=== PATIENT | male | born 1990 | race Caucasian/White ===

== ENCOUNTER 2020-07-26 17:26 | Inpatient (IN) | payer OTHER ==
[2020-07-26] MEDS ORDERED: MAGNESIUM HYDROX 2400MG/30ML ORAL SUSPENSION 30 ML CUP PO PRN (18:57)
[2020-07-26] MEDS ORDERED: IBUPROFEN 400 MG TABLET (FP) PO PRN (18:57)
[2020-07-26] MEDS ORDERED: ACETAMINOPHEN 325 MG TABLET (FP) PO PRN (18:57)
[2020-07-26] MEDS ORDERED: MAG HYDROX/AL HYDROX/SIMETH 30 ML UNIT-DOSE CUP PO PRN (18:57)
[2020-07-26] MEDS ORDERED: LOPERAMIDE HCL 2 MG CAPSULE PO PRN (18:57)
[2020-07-26] MEDS ORDERED: P-EPHED 60MG/TRIPROLIDI 2.5MG TABLET PO PRN (18:57)
[2020-07-26] MEDS ORDERED: guaiFENesin 200 MG/10 ML 10 ML UNIT-DOSE CUPS PO PRN (18:57)
[2020-07-26] MEDS ORDERED: MAGNESIUM CITRATE 300 ML BOTTLE PO PRN (18:57)
[2020-07-26 19:35] VITALS: BMI 19.0
[2020-07-26] MEDS: levETIRAcetam 500 MG TABLET (FP) PO SCH (21:45)
[2020-07-26] MEDS: MELATONIN 5 MG TABLETS PO SCH (21:45)
[2020-07-26] MEDS: THIAMINE HCL 100 MG TABLET (FP) PO SCH (21:45)
[2020-07-26] MEDS: LACOSAMIDE 50 MG TABLET PO SCH (23:39)
[2020-07-27] MEDS: levETIRAcetam 500 MG TABLET (FP) PO SCH ×2 (06:42→18:57)
[2020-07-27] MEDS: PRENATAL VITAMINS W/ FOLIC ACID TABLET (FP) PO SCH (09:57)
[2020-07-27] MEDS: LACOSAMIDE 50 MG TABLET PO SCH ×2 (09:57→21:17)
[2020-07-27 12:42] LABS: HEMATOCRIT 37.1 % (35.4-49); HEMOGLOBIN 12.7 GM/dL (11.7-16.9); MCH 32.6 pg (25.7-33.7); MCHC 34.1 g/dl (32.0-35.9); MEAN CELL VOLUME 95.6 fl (80-96); PLATELET COUNT 276 K/MM3 (134-434); RBC 3.88 M/mm3 (4.00-5.60); RDW 12.9 % (11.9-15.9); WHITE BLOOD COUNT 7.1 K/mm3 (4.0-10.0)
[2020-07-27 12:47] LABS: POTASSIUM 4.1 mmol/L (3.5-5.1)
[2020-07-27 13:03] LABS: ALBUMIN 3.6 g/dl (3.4-5.0); BLOOD UREA NITROGEN 13.1 mg/dL (7-18); CALCIUM 9.4 mg/dL (8.5-10.1)
[2020-07-27 13:07] LABS: CREATININE 0.6 mg/dL (0.55-1.3)
[2020-07-27 13:09] LABS: TOT PROT 6.6 g/dl (6.4-8.2)
[2020-07-27 13:11] LABS: BILIRUBIN,TOTAL 0.6 mg/dL (0.2-1)
[2020-07-27] MEDS: THIAMINE HCL 100 MG TABLET (FP) PO SCH (21:17)
[2020-07-27] MEDS: MELATONIN 5 MG TABLETS PO SCH (21:18)
[2020-07-28] MEDS: levETIRAcetam 500 MG TABLET (FP) PO SCH ×2 (07:28→19:46)
[2020-07-28] MEDS: LACOSAMIDE 50 MG TABLET PO SCH ×2 (09:31→21:11)
[2020-07-28] MEDS: PRENATAL VITAMINS W/ FOLIC ACID TABLET (FP) PO SCH (09:31)
[2020-07-28] MEDS: THIAMINE HCL 100 MG TABLET (FP) PO SCH (21:11)
[2020-07-28] MEDS: MELATONIN 5 MG TABLETS PO SCH (21:11)
[2020-07-29] MEDS: levETIRAcetam 500 MG TABLET (FP) PO SCH ×2 (07:18→19:46)
[2020-07-29] MEDS: LACOSAMIDE 50 MG TABLET PO SCH ×2 (09:56→21:17)
[2020-07-29] MEDS: PRENATAL VITAMINS W/ FOLIC ACID TABLET (FP) PO SCH (09:56)
[2020-07-29] MEDS: THIAMINE HCL 100 MG TABLET (FP) PO SCH (21:17)
[2020-07-29] MEDS: MELATONIN 5 MG TABLETS PO SCH (21:17)
[2020-07-30] MEDS: levETIRAcetam 500 MG TABLET (FP) PO SCH ×2 (06:19→18:24)
[2020-07-30] MEDS: PRENATAL VITAMINS W/ FOLIC ACID TABLET (FP) PO SCH (10:05)
[2020-07-30] MEDS: LACOSAMIDE 50 MG TABLET PO SCH ×2 (10:06→21:09)
[2020-07-30 15:54] LABS: URINE APPEARANCE Clear; URINE BILIRUBIN Negative (NEGATIVE); URINE COLOR Yellow; URINE GLUCOSE (UA) Negative (NEGATIVE); URINE KETONE Negative (NEGATIVE); URINE LEUK ESTERASE Negative (NEGATIVE); URINE NITRITE Negative (NEGATIVE); URINE PROTEIN Negative (NEGATIVE); URINE UROBILINOGEN 0.2 mg/dL (0.2-1.0)
[2020-07-30] MEDS: MELATONIN 5 MG TABLETS PO SCH (21:09)
[2020-07-30] MEDS: THIAMINE HCL 100 MG TABLET (FP) PO SCH (21:09)
[2020-07-31] MEDS: levETIRAcetam 500 MG TABLET (FP) PO SCH ×2 (06:28→18:28)
[2020-07-31] MEDS: PRENATAL VITAMINS W/ FOLIC ACID TABLET (FP) PO SCH (09:40)
[2020-07-31] MEDS: LACOSAMIDE 50 MG TABLET PO SCH ×2 (09:40→21:10)
[2020-07-31] MEDS: THIAMINE HCL 100 MG TABLET (FP) PO SCH (21:10)
[2020-07-31] MEDS: MELATONIN 5 MG TABLETS PO SCH (21:10)
[2020-08-01] MEDS: levETIRAcetam 500 MG TABLET (FP) PO SCH ×2 (06:51→19:20)
[2020-08-01] MEDS: LACOSAMIDE 50 MG TABLET PO SCH ×2 (09:37→22:00)
[2020-08-01] MEDS: PRENATAL VITAMINS W/ FOLIC ACID TABLET (FP) PO SCH (09:37)
[2020-08-01] MEDS: MELATONIN 5 MG TABLETS PO SCH (22:00)
[2020-08-01] MEDS: THIAMINE HCL 100 MG TABLET (FP) PO SCH (22:00)
[2020-08-02] MEDS: levETIRAcetam 500 MG TABLET (FP) PO SCH ×2 (06:49→18:09)
[2020-08-02] MEDS: PRENATAL VITAMINS W/ FOLIC ACID TABLET (FP) PO SCH (09:54)
[2020-08-02] MEDS: LACOSAMIDE 50 MG TABLET PO SCH ×2 (09:54→21:36)
[2020-08-02] MEDS: THIAMINE HCL 100 MG TABLET (FP) PO SCH (21:35)
[2020-08-02] MEDS: MELATONIN 5 MG TABLETS PO SCH (21:35)
[2020-08-03] MEDS: levETIRAcetam 500 MG TABLET (FP) PO SCH ×2 (06:56→19:50)
[2020-08-03] MEDS: PRENATAL VITAMINS W/ FOLIC ACID TABLET (FP) PO SCH (09:48)
[2020-08-03] MEDS: LACOSAMIDE 50 MG TABLET PO SCH ×2 (09:48→21:13)
[2020-08-03] MEDS: MELATONIN 5 MG TABLETS PO SCH (21:13)
[2020-08-03] MEDS: THIAMINE HCL 100 MG TABLET (FP) PO SCH (21:13)
[2020-08-04] MEDS: levETIRAcetam 500 MG TABLET (FP) PO SCH ×2 (06:35→18:01)
[2020-08-04] MEDS: PRENATAL VITAMINS W/ FOLIC ACID TABLET (FP) PO SCH (09:28)
[2020-08-04] MEDS: LACOSAMIDE 50 MG TABLET PO SCH ×2 (09:29→21:26)
[2020-08-04] MEDS: MELATONIN 5 MG TABLETS PO SCH (21:26)
[2020-08-04] MEDS: THIAMINE HCL 100 MG TABLET (FP) PO SCH (21:26)
[2020-08-05] MEDS: levETIRAcetam 500 MG TABLET (FP) PO SCH ×2 (06:30→20:18)
[2020-08-05] MEDS: LACOSAMIDE 50 MG TABLET PO SCH (09:45)
[2020-08-05] MEDS: PRENATAL VITAMINS W/ FOLIC ACID TABLET (FP) PO SCH (09:45)
[2020-08-05] MEDS: THIAMINE HCL 100 MG TABLET (FP) PO SCH (21:14)
[2020-08-05] MEDS: MELATONIN 5 MG TABLETS PO SCH (21:14)
[2020-08-06] MEDS: levETIRAcetam 500 MG TABLET (FP) PO SCH ×2 (06:24→19:59)
[2020-08-06] MEDS: PRENATAL VITAMINS W/ FOLIC ACID TABLET (FP) PO SCH (09:41)
[2020-08-06] MEDS ORDERED: LACOSAMIDE 50 MG TABLET PO ONE (13:44)
[2020-08-06] MEDS: THIAMINE HCL 100 MG TABLET (FP) PO SCH (21:06)
[2020-08-06] MEDS: HALOPERIDOL 2 MG TABLET PO SCH (21:06)
[2020-08-06] MEDS: LACOSAMIDE 50 MG TABLET PO SCH (21:08)
[2020-08-06] MEDS: MELATONIN 5 MG TABLETS PO SCH (21:09)
[2020-08-07] MEDS: levETIRAcetam 500 MG TABLET (FP) PO SCH ×2 (07:05→21:05)
[2020-08-07] MEDS: PRENATAL VITAMINS W/ FOLIC ACID TABLET (FP) PO SCH (10:15)
[2020-08-07] MEDS: LACOSAMIDE 50 MG TABLET PO SCH ×2 (10:16→21:06)
[2020-08-07] MEDS ORDERED: PT OWN MED DRAWER 7, Y5N ONE ×2 (19:29→21:08)
[2020-08-07] MEDS: MELATONIN 5 MG TABLETS PO SCH (21:06)
[2020-08-07] MEDS: THIAMINE HCL 100 MG TABLET (FP) PO SCH (21:06)
[2020-08-07] MEDS: HALOPERIDOL 2 MG TABLET PO SCH (23:32)
[2020-08-08] MEDS: levETIRAcetam 500 MG TABLET (FP) PO SCH ×2 (06:26→19:20)
[2020-08-08] MEDS: LACOSAMIDE 50 MG TABLET PO SCH ×2 (09:46→21:30)
[2020-08-08] MEDS: PRENATAL VITAMINS W/ FOLIC ACID TABLET (FP) PO SCH (09:46)
[2020-08-08] MEDS: HALOPERIDOL 2 MG TABLET PO SCH (21:30)
[2020-08-08] MEDS: THIAMINE HCL 100 MG TABLET (FP) PO SCH (21:30)
[2020-08-08] MEDS: MELATONIN 5 MG TABLETS PO SCH (21:30)
[2020-08-09] MEDS ORDERED: HALOPERIDOL 2 MG TABLET PO SCH
[2020-08-09] MEDS: levETIRAcetam 500 MG TABLET (FP) PO SCH ×2 (06:35→19:29)
[2020-08-09] MEDS: PRENATAL VITAMINS W/ FOLIC ACID TABLET (FP) PO SCH (09:54)
[2020-08-09] MEDS: LACOSAMIDE 50 MG TABLET PO SCH ×2 (09:55→21:27)
[2020-08-09] MEDS: MELATONIN 5 MG TABLETS PO SCH (21:27)
[2020-08-09] MEDS: THIAMINE HCL 100 MG TABLET (FP) PO SCH (21:27)
[2020-08-09] MEDS ORDERED: PT OWN MED DRAWER 7, Y5N ONE (21:28)
[2020-08-10] MEDS: levETIRAcetam 500 MG TABLET (FP) PO SCH (07:05)
[2020-08-10 07:06] VITALS: BP 97/75; PULSE 82; TEMP 98.1
[2020-08-10] MEDS: LACOSAMIDE 50 MG TABLET PO SCH (09:03)
[2020-08-10] MEDS: PRENATAL VITAMINS W/ FOLIC ACID TABLET (FP) PO SCH (09:04)
== END 2020-08-10 10:45 | disposition home or self-care (01) | DRG 772 ==
LOC: YASAS 17:26 → Y5N 20:13
PROVIDERS: ADMIT Allergy & Immunology; ATTEND Allergy & Immunology
PROC: HZ42ZZZ Group Counseling for Substance Abuse Treatment, Cognitive-Behavioral (ICD-10-PCS; principal; 2020-07-26)
DX: F10.20 Alcohol dependence, uncomplicated (principal); F10.24 Alcohol dependence with alcohol-induced mood disorder; F10.280 Alcohol dependence with alcohol-induced anxiety disorder; F12.20 Cannabis dependence, uncomplicated; F17.210 Nicotine dependence, cigarettes, uncomplicated; F32.9 Major depressive disorder, single episode, unspecified; G40.909 Epilepsy, unspecified, not intractable, without status epilepticus; R63.6 Underweight; Z68.1 Body mass index [BMI] 19.9 or less, adult; Z91.14 Patient's other noncompliance with medication regimen
CPT/HCPCS: 36415; 80053; 80177; 81003; 85027; 86780; C9803; U0003